=== PATIENT | male | born 1975 | race Caucasian/White ===

== ENCOUNTER 2020-09-23 08:40 | Emergency (ER) | payer SELFPAY ==
[~2020-09-23] VITALS: Ht 180 cm; Wt 58.9 kg
[2020-09-23 08:49] VITALS: BP 158/103
--- NOTE | 2020-09-23 08:59 | ED Lower Extremity ---
General Chief Complaint: Lower Extremity Stated Complaint: R KNEE DISLOCATED Source: patient Exam Limitations: no limitations History of Present Illness Date Seen by Provider: Sep 23, 2020 Time Seen by Provider: 08:45 Initial Comments Patient to the ER by private conveyance from home with chief complaint that last night he was pivoting to the left and felt some pain because his right foot caught causing pain in his right knee. He now has swelling in his knee. He has not taken anything for the pain. No prior injury to his knee. He does have a history of pes cavus and a history of fracture/crush injury in his right foot surgically repaired. At baseline he is able to walk on his leg. He is able to bear only a little bit of weight with excruciating pain in his right knee. Allergies and Home Medications Allergies Coded Allergies: No Known Drug Allergies (Unverified , 09/23/20) Patient Home Medication List Home Medication List Reviewed: Yes Review of Systems Constitutional: No chills, No fever EENTM: No ear discharge, No ear pain Respiratory: No cough, No short of breath Cardiovascular: No edema, No syncope Gastrointestinal: No abdominal pain, No nausea Genitourinary: No discharge, No dysuria Musculoskeletal: see HPI; No back pain; joint pain All Other Systems Reviewed Negative Unless Noted: Yes Physical Exam Vital Signs Vital Signs - First Documented 09/23/20 08:49 Temp 36.9 Pulse 100 Resp 18 B/P (MAP) 158/103 (121) Pulse Ox 96 Capillary Refill : Height, Weight, BMI Height: '" Weight: lbs. oz. kg; BMI Method: General Appearance: mild distress, thin HEENT: PERRL/EOMI, pharynx normal Neck: full range of motion, normal inspection Cardiovascular: normal peripheral pulses, regular rate, rhythm Respiratory: no respiratory distress, no accessory muscle use Gastrointestinal: non tender, soft Hips: bilateral hip non-tender, bilateral hip normal inspection, bilateral hip normal range of motion, bilateral hip no evidence of injury Knees: left knee non-tender, left knee normal inspection, left knee normal range of motion, left knee no evidence of injury; right knee joint effusion, right knee pain, right knee soft tissue tenderness, right knee swelling Ankles: bilateral ankle non-tender; left ankle normal inspection, left ankle normal range of motion; bilateral ankle no evidence of injury; right ankle deformity Neurologic/Psychiatric: alert, normal mood/affect, oriented x 3 Skin: normal color, warm/dry Progress/Results/Core Measures Results/Orders My Orders Orders - JEEVAN SETHI Knee, Right, 3 Views (09/23/20 08:54) Ibuprofen Tablet (Motrin Tablet) (09/23/20 09:00) Medications Given in ED Current Medications Medications Dose Ordered Sig/Karen Route Start Time Stop Time Status Last Admin Dose Admin Ibuprofen 800 mg ONCE ONCE PO 09/23/20 09:00 09/23/20 09:01 DC 09/23/20 09:01 800 MG Vital Signs/I&O 09/23/20 08:49 Temp 36.9 Pulse 100 Resp 18 B/P (MAP) 158/103 (121) Pulse Ox 96 Progress Progress Note #1: Time: 08:59 Progress Note Ice pack and ibuprofen. Plain films of the right knee. Progress Note #2: Time: 09:49 Progress Note The patient states he has access to some crutches and a wheelchair at home. Follow-up with Dr. Garber in 1 week. Diagnostic Imaging Diagonstic Imaging: Xray Plain Films/CT/US/NM/MRI: knee (Right) Comments [facility] [place], [place] NAME: MARLYN DOYLE MED REC#: [id number] PT STATUS: REG ER : 1975 PHYSICIAN: JEEVAN SETHI MD ADMIT DATE: 09/23/20/ER Draft Date of Exam:09/23/20 KNEE, RIGHT, 3 VIEWS Indication: Twisting injury, pain. Findings: A nonappearing sclerotic cortical lesion proximal tibial metadiaphysis is noted. The lateral view showed no loose body or convincing joint effusion, no fracture or articular irregularity, no pathological widening of the joint spaces. The alignment anatomic. Impression: Benign sclerotic cortical focus right proximal tibia, no acute or suspicious abnormality identified. Dictated on workstation # [id number] Dict: 09/23/20924 Trans: 09/23/20929 CV [id number] Interpreted by: SAMANTHA DIAZ Electronically signed by: Reviewed: Reviewed by Me Departure Impression Primary Impression: Right knee sprain Qualified Codes: S83.91XA - Sprain of unspecified site of right knee, initial encounter Disposition: HOME, SELF-CARE Condition: Stable Departure-Patient Inst. Decision time for Depature: 09:38 Referrals: NO,LOCAL PHYSICIAN (PCP) Primary Care Physician BINA GARBER MD Patient Instructions: Knee Sprain (DC) Add. Discharge Instructions: Keep the knee wrapped with an Donn bandage or neoprene knee sleeve. Ice applied to the knee for 20 minutes every 2 hours while awake for the next 2 to 3 days. Follow-up this week with the orthopedist or primary care doctor of your choice. Dr. Garber, orthopedics would be happy to follow you with you give his office a call and ask for an appointment. Elevate your knee above the level of your heart while at rest. Minimize weightbearing on your knee until the pain improves. Ibuprofen 800 mg every 8 hours or naproxen 2 tablets twice a day until the swelling and pain improves. All discharge instructions reviewed with patient and/or family. Voiced understanding. JEEVAN SETHI Sep 23, 2020 08:59
[2020-09-23] MEDS ORDERED: IBUPROFEN 800 MG (MOTRIN) TAB PO ONE (09:00)
--- NOTE | 2020-09-23 09:30 | Diagnostic Imaging Report ---
Indication: Twisting injury, pain. Findings: A nonappearing sclerotic cortical lesion proximal tibial metadiaphysis is noted. The lateral view showed no loose body or convincing joint effusion, no fracture or articular irregularity, no pathological widening of the joint spaces. The alignment anatomic. Impression: Benign sclerotic cortical focus right proximal tibia, no acute or suspicious abnormality identified. Dictated by: Dictated on workstation # [id number]
== END 2020-09-23 09:54 | disposition home or self-care (01) ==
LOC: ER 08:44
DX: S83.91XA Sprain of unspecified site of right knee, initial encounter (principal); X50.1XXA Overexertion from prolonged static or awkward postures, initial encounter
CPT/HCPCS: 73562